=== PATIENT | female | born 1950 | race Caucasian/White ===

== ENCOUNTER 2016-02-18 15:21 | Inpatient (IN) | payer MEDICARE ==
[~2016-02-18] VITALS: Ht 162.6 cm; Wt 85.9 kg
[2016-02-22] MEDS ORDERED: LOSA100T3 PO (10:48)
[2016-02-22] MEDS ORDERED: DICL75TA PO (10:48)
[2016-02-22] MEDS ORDERED: METO25TA6 PO (10:48)
[2016-02-22] MEDS ORDERED: SIMV20TA PO (10:48)
[2016-02-22] MEDS ORDERED: LEVO75TA3 PO (10:48)
[2016-03-08 08:00] VITALS: BP 139/73; PULSE 66; RESP 20; TEMP 98; O2SAT 98
[2016-03-08] MEDS ORDERED: GENTAMICIN SULFATE 80 MG/2 ML VIAL ONE (08:15)
[2016-03-08] MEDS ORDERED: DEXAMETHASONE SOD PHOS 20 MG/5 ML VIAL ONE (08:17)
[2016-03-08] MEDS ORDERED: ceFAZolin 2 GM PREMIX 50 ML ONE (08:18)
[2016-03-08] MEDS ORDERED: VANCOMYCIN HCL 1000 MG VIAL ONE (08:18)
[2016-03-08] MEDS ORDERED: SODIUM CHLOR 0.9% 250 ML INJ 250 ML ONE (08:18)
[2016-03-08] MEDS: POVIDONE IODINE 7.5% SCRUB 118 ML BOTTLE TOP SCH (08:30)
[2016-03-08] MEDS ORDERED: ceFAZolin 2 GM PREMIX 50 ML IV SCH (08:30)
[2016-03-08] MEDS ORDERED: VANCOMYCIN 1000 MG/NS 250 ML (for <70 kg) IV SCH ×2 (08:30)
[2016-03-08] MEDS ORDERED: DEXAMETHASONE SOD PHOS 20 MG/5 ML VIAL IV ONE (08:30)
[2016-03-08] MEDS ORDERED: ROPIVACAINE PERI-ARTICULAR INJECTION. PERIART SCH ×5 (08:30)
[2016-03-08] MEDS ORDERED: INSULIN HUMAN REGULAR 1,000 UNITS/10 ML VIAL SQ PRN (08:30)
[2016-03-08] MEDS ORDERED: METOPROLOL TARTRATE 25 MG TAB PO PRN (08:30)
[2016-03-08] MEDS ORDERED: SODIUM CHLORID 0.9% 500 ML IV SCH (09:00)
[2016-03-08] MEDS ORDERED: LACTATED RINGER'S 1000 ML IV SCH (09:00)
[2016-03-08] MEDS ORDERED: MIDAZOLAM HCL 5 MG/5 ML VIAL ONE (09:18)
[2016-03-08] MEDS ORDERED: APREPITANT 40 MG CAP ONE (09:18)
[2016-03-08] MEDS ORDERED: FAMOTIDINE 20 MG/2 ML VIAL ONE (09:18)
[2016-03-08] MEDS ORDERED: SODIUM CHLORIDE 0.9% IV SCH ×2 (09:30→14:00)
[2016-03-08] MEDS ORDERED: TRANEXAMIC ACID IV SCH ×2 (09:30→14:00)
[2016-03-08] MEDS ORDERED: ACETAMINOPHEN 1000 MG/100 ML VIAL IV ONE (09:54)
--- NOTE | 2016-03-08 11:54 | PD.OP ---
cc: Yonatan Giron MD Operative Report Date of Surgery: Mar 08, 2016 Preoperative Diagnosis: Right knee severe osteoarthritis Postoperative Diagnosis: Same Procedure: Right total knee arthroplasty Anesthesia: Spinal and adductor canal block Surgeon: Yonatan Giron [employer] Manager(s): RUKHSANA Sainz The surgical procedure was assisted by my Advanced Registered Nurse Practitioner. My CHILD SUPPORT CASE OFFICER presence was necessary throughout this case for the manipulation and positioning of the surgical extremity. My CHILD SUPPORT CASE OFFICER was assisting me throughout the duration of this procedure. The skill set of an Advance Registered Nurse Practitioner was medically necessary to complete this procedure. During the surgical case, the instructor adjunct surgical technician was working at the back table and the Advance Registered Nurse Practitioner was directly assisting me. Operation and Findings: IMPLANTS: DePuy Attune: Patella: size 32. Femur, posterior stabilized size 5. Tibia, rotating platform size 4. Tibial insert, rotating platform, posterior stabilized size 5 mm thickness. ESTIMATED BLOOD LOSS: 150 cc TOURNIQUET TIME: 40 minutes at 250 mmHg pressure. JUSTIFICATION FOR PROCEDURE: The patient has end-stage osteoarthritis to the knee. There is an attached conservative measures pathway form in the chart that describes the nonoperative measures that were undertaken prior to consideration of surgical management. The patient understood the risks and benefits of surgical management. See my office notes for further details PROCEDURE: The patient was brought back to the operative theatre. Adequate anesthesia was obtained. The patient received intravenous vancomycin and Ancef. The lower extremity was prepped and draped in the usual sterile fashion.The leg was exsanguinated, the tourniquet was raised. A standard anterior incision was performed followed by medial parapatellar arthrotomy was performed. End-stage arthritis was identified. Osteotomy of the patella was performed. We drilled holes for the patella. We trialed the patella component. We placed an intramedullary guide into the distal femur. We ultimately resected 13 mm off of the distal femur in 5 degrees of valgus. The remnants of the ACL and PCL were resected. Osteotomy of the proximal tibia was performed, resecting 7 mm off of the medial side. This was done with 3 degrees of posterior slope using an extramedullary guide. The distal end of the guide was placed in the mid aspect of the ankle. The femur was sized, and four chamfer cuts were completed in 3 of external rotation. We then cut the central box in the distal femur to replace the PCL. We resected the remnants of the menisci and removed osteophytes off of the femur and tibia. We then trialed the knee. We punched the tibia for the keel, and then used standard technique to cement in components. Excess cement was removed. We trialed the knee again and the final polyethylene thickness was chosen to provide extension to 0 degrees, and flexion of 140 degrees to gravity. The ligaments were appropriately balanced. Lateral release was not necessary to obtain excellent patellofemoral tracking. The tourniquet was released and adequate hemostasis was obtained. An intra- articular injection of a ropivacaine cocktail was injected. The posterior knee was inspected for excess cement, which was removed. The final polyethylene was put into position after thorough irrigation. We then closed deep fascia with a #2 Stratafix followed by skin with 2-0 Vicryl followed by rosalind. Postop plan is to weight-bear as tolerated. DVT prophylaxis will be performed with James, JULES salgado, early mobilization, and Lovenox followed by aspirin. Yonatan Giron MD Mar 08, 2016 11:54
[2016-03-08] MEDS ORDERED: PERC5TAB12 PO (11:55)
[2016-03-08] MEDS ORDERED: ENOX40P SQ (11:55)
[2016-03-08] MEDS ORDERED: ASPI325T PO (11:55)
[2016-03-08] MEDS ORDERED: oxyCODONE/ACETAMINOPHEN 5 MG/325 MG TAB PO PRN (12:00)
[2016-03-08] MEDS ORDERED: LACTATED RINGER'S 1000 ML INJ 1,000 ML IV ONE (12:00)
[2016-03-08] MEDS ORDERED: PROPOFOL 200 MG/20 ML AMP IV ONE (12:00)
[2016-03-08] MEDS ORDERED: ONDANSETRON HCL 4 MG/2 ML VIAL IV PUSH ONE (12:00)
[2016-03-08] MEDS ORDERED: ALUMINUM/MAGNESIUM/SIMETH 30 ML CUP PO PRN (12:00)
[2016-03-08] MEDS ORDERED: MORPHINE SULFATE 4 MG/ML INJ IV PUSH PRN (12:00)
[2016-03-08] MEDS ORDERED: NALOXONE HCL 0.4 MG/ML AMP IV PRN (12:00)
[2016-03-08] MEDS ORDERED: ePHEDrine/NS 50 MG/5 ML SYR IV ONE (12:00)
[2016-03-08] MEDS ORDERED: MAGNESIUM HYDROXIDE SUSP 30 ML CUP PO PRN (12:00)
[2016-03-08] MEDS ORDERED: SODIUM CHLORIDE 0.9% FLUSH 5 ML FLUSH IVF PRN (12:00)
[2016-03-08] MEDS ORDERED: diphenhydrAMINE HCL 50 MG/ML VIAL IV PRN (12:00)
[2016-03-08] MEDS ORDERED: ZOLPIDEM TARTRATE 5 MG TAB PO PRN (12:00)
[2016-03-08] MEDS ORDERED: Post-op Orders (for Pharmacy) MISC XX ONE (12:00)
[2016-03-08] MEDS ORDERED: BISACODYL 10 MG SUPP PR PRN (12:00)
[2016-03-08 12:14] VITALS: PULSE 89
--- NOTE | 2016-03-08 12:20 | HHI.DCPOC ---
Discharge Care Plan Diagnosis: (1) Primary localized osteoarthrosis, lower leg Your Health Problems Are: Difficulty with ADL Goals to Promote Your Health * To prevent worsening of your condition and complications * To maintain your health at the optimal level Directions to Meet Your Goals Take your medications as prescribed Follow your dietary instruction Follow activity as directed Keep your appointments as scheduled Take your immunizations and boosters as scheduled If your symptoms worsen call your PCP, if no PCP go to Urgent Care Center or Emergency Room Smoking is Dangerous to Your Health. Avoid second hand smoke Call the 24-hour hour crisis hotline for domestic abuse at [facility] [place] Mar 08, 2016 12:20
--- NOTE | 2016-03-08 12:20 | HHI.FF ---
Face to Face Verification Diagnosis: (1) Primary localized osteoarthrosis, lower leg Physical Therapy Gait training, Transfer training, bed to chair Knee: Total knee Right LE Weight Bearing: WB as tolerated Right LE Range of Motion: Active ROM Nursing Nursing: Kylie teaching, Dressing changes Dressing Changes: Daily dressing change I have seen patient Yaneth Hernandez on 03/08/16. My clinical findings support the need for the requested home health care services because: Limited ability to care for self High risk of falls I certify that my clinical findings support that this patient is homebound because: Post-op weakness Unsteady gait/balance Buck Orellana Mar 08, 2016 12:20
[2016-03-08] MEDS ORDERED: CPMMACHINE (12:22)
[2016-03-08] MEDS ORDERED: WALKER WHEELS/F1 MIS (12:22)
[2016-03-08] MEDS ORDERED: COMMODE 3-IN-11 MIS (12:22)
[2016-03-08] MEDS ORDERED: BUPIVACAINE LIPOSOME PF 1.3% 20 ML VIAL ONE (12:39)
--- NOTE | 2016-03-08 13:12 | RADRPT ---
EXAM DATE/TIME: 03/08/2016 12:44 [facility] COMPARISON: None INDICATIONS : Post-op total right knee arthroplasty. MEDICAL HISTORY : Hypertension. SURGICAL HISTORY : Hysterectomy. Right breast lumpectomy, Bilateral knee arthroscopy. ENCOUNTER: Initial ACUITY: 1 day PAIN SCORE: 0/10 LOCATION: Right knee. FINDINGS: 2 views of the right knee demonstrates expected postsurgical changes related to total right knee arth roplasty. Adjacent subcutaneous air. The osseous structures are appear intact with normal mineralizat ion. CONCLUSION: Status post total right knee arthroplasty with expected postsurgical change. No compl icating features are seen. Rochelle Lancaster MD on March 08, 2016 at 13:10 Board Certified Radiologist. This report was verified electronically.
[2016-03-08] MEDS: SODIUM CHLOR 0.9% 1000 ML INJ 1,000 ML IV SCH (13:30)
[2016-03-08] MEDS ORDERED: *morphine SULFATE 8 MG/ML PERIprocedure ONLY ONE (14:23)
[2016-03-08] MEDS ORDERED: *HYDROmorphone PF 1 MG VIAL PERIprocedural Use ONLY ONE (15:06)
[2016-03-08 15:45] VITALS: PULSE 91
--- NOTE | 2016-03-08 16:04 | PD.CONS ---
[facility] By [facility]iron [facility]o Reason for Consult medical management Primary Care Physician Non-Staff Diagnoses: History of Present Illness 65 yo F with PNH of HTN, HLD, Hypothyroidism came to elective right knee surgery by Dr Plascencia 03/08/16. Patient is s/p Right total knee arthroplasty . Was seen in PACU. Says she feesl good at this time. Patient reports she has back spasms lately. Pain is controlled by meds. Patient also says she usually has nausea after anesthesia wares off. No nausea at this time. Wi;l have antiemetics and laxatives asa need. Otherwise no complaints. Review of Systems Constitutional: DENIES: Fever, Chills, Change in appetite Endocrine: DENIES: Heat/cold intolerance Eyes: DENIES: Blurred vision, Eye pain Ears, nose, mouth, throat: DENIES: Tinnitus, Hearing loss, Vertigo, Nasal discharge, Oral lesions, Throat pain, Hoarseness, Ear Pain, Running Nose, Epistaxis, Sinus Pain, Toothache, Odynophagia Respiratory: DENIES: Apneas, Cough, Snoring, Wheezing, Hemoptysis, Sputum production, Shortness of breath Cardiovascular: DENIES: Chest pain, Palpitations, Syncope, Dyspnea on Exertion , PND, Lower Extremity Edema, Orthopnea, Claudication Gastrointestinal: DENIES: Abdominal pain, Black stools, Bloody stools, Constipation, Diarrhea, Nausea, Vomiting, Difficulty Swallowing, Anorexia Genitourinary: DENIES: Urinary frequency Musculoskeletal: COMPLAINS OF: Joint pain, Back pain Neurologic: DENIES: Abnormal gait, Headache, Localized weakness, Paresthesias, Seizures, Speech Problems, Tremor, Poor Balance Psychiatric: DENIES: Anxiety, Depression Past Family Social History Allergies: Coded Allergies: No Known Allergies (Unverified , 03/08/16) Past Medical History HTN, HLD Hypothyroidism Past Surgical History Hysterectomy H/o breast CA. Bilat breast implants right knee arthroscopy 03/13 Reported Medications Last Impressions Knee X-Ray 03/08/16 1150 Signed Impressions: Service Date/Time: Tuesday, March 08, 2016 12:44 - CONCLUSION: Status post total right knee arthroplasty with expected postsurgical change. No complicating features are seen. Rochelle Lancaster MD Family History Mother heart problems CABG, first stroke at the age of 29, send stroke at 56 ya when she Father emphysema, was a smoker. HTN. Siblings: Br CA, HTN, Alzheimers Social History Occasional EtOH use Used to smoke less than 1/2 PPD, for 15 years, quit 20 years ago No illicit drug use. Used to be a nurse. Physical Exam Vital Signs Vital Signs Date Time Temp Pulse Resp B/P Pulse Ox O2 Delivery O2 Flow Rate FiO2 03/08/16 15:45 91 03/08/16 14:15 97.2 79 14 100/60 97 Room Air 03/08/16 14:00 80 14 107/59 97 Room Air 03/08/16 13:45 78 14 107/59 97 Room Air 03/08/16 13:30 81 14 102/58 96 Room Air 03/08/16 13:15 81 14 110/63 100 Room Air 03/08/16 13:00 77 14 105/63 99 Room Air 03/08/16 12:45 82 14 92/56 99 Room Air 03/08/16 12:30 84 14 102/50 98 Room Air 03/08/16 12:14 89 03/08/16 12:14 97.3 89 14 109/48 97 Room Air 03/08/16 08:00 98.0 66 20 139/73 98 Physical Exam GENERAL: This is a well-nourished, well-developed patient, in no apparent distress. SKIN: No rashes, ecchymoses or lesions. Cool and dry. HEAD: Atraumatic. Normocephalic. No temporal or scalp tenderness. EYES: Pupils equal round and reactive. Extraocular motions intact. No scleral icterus. No injection or drainage. ENT: Nose without bleeding, purulent drainage or septal hematoma. Throat without erythema, tonsillar hypertrophy or exudate. Uvula midline. Airway patent. NECK: Trachea midline. No JVD or lymphadenopathy. Supple, nontender, no meningeal signs. CARDIOVASCULAR: Regular rate and rhythm without murmurs, gallops, or rubs. RESPIRATORY: Clear to auscultation. Breath sounds equal bilaterally. No wheezes , rales, or rhonchi. GASTROINTESTINAL: Abdomen soft, non-tender, nondistended. No hepato-splenomegaly , or palpable masses. No guarding. MUSCULOSKELETAL: Extremities without clubbing, cyanosis, or edema. No joint tenderness, effusion, or edema noted. No calf tenderness. Negative Homans sign bilaterally. NEUROLOGICAL: Awake and alert. Cranial nerves II through XII intact. Motor and sensory grossly within normal limits. Five out of 5 muscle strength in all muscle groups. Normal speech. Laboratory Laboratory Tests Test 03/08/16 08:00 Blood Type O NEGATIVE Antibody Screen NEGATIVE Blood Bank Comment Imaging Last Impressions Knee X-Ray 03/08/16 1150 Signed Impressions: Service Date/Time: Tuesday, March 08, 2016 12:44 - CONCLUSION: Status post total right knee arthroplasty with expected postsurgical change. No complicating features are seen. Rochelle Lancaster MD Assessment and Plan Assessment and Plan 65 yo F with PMH of HTN. HLD, Hypothyroidism with Monitor H.H postsurgical transfuse if HGB < 7 Monitor VS OA s/p Right total knee arthroplasty 03/08/16 . Management per ortho HTN. HLD, Hypothyroidism stable. Restart home meds. Monitor VS. Antiemetics, laxatives as need. Thank you for this consultation. Stable at this time. Hospitalist will sign off Discussed Condition With patient. nurse Rosa Lindsey MD Mar 08, 2016 16:04
[2016-03-08] MEDS ORDERED: COLA100C3 PO (16:06)
[2016-03-08] MEDS ORDERED: ZOFR4TAB PO (16:06)
[2016-03-08 16:14] VITALS: BP 120/75; PULSE 92; RESP 17; TEMP 96.6; O2SAT 98
[2016-03-08] MEDS: ONDANSETRON HCL 4 MG/2 ML VIAL IVP PRN (16:55)
[2016-03-08] MEDS: oxyCODONE/ACETAMINOPHEN 5 MG/325 MG TAB PO PRN ×2 (17:47→21:18)
[2016-03-08 20:00] VITALS: BP 124/82; PULSE 95; RESP 16; TEMP 96.2; O2SAT 100
[2016-03-08] MEDS ORDERED: METOPROLOL SUCCINATE 25 MG EXTENDED RELEASE TAB PO SCH (21:00)
[2016-03-08] MEDS ORDERED: PRAVASTATIN SOD 40 MG TAB PO SCH (21:00)
[2016-03-08] MEDS: SODIUM CHLORIDE 0.9% FLUSH 5 ML FLUSH IVF SCH (21:00)
[2016-03-09] VITALS: BP 121/69; PULSE 95; RESP 17; TEMP 96.7; O2SAT 94
[2016-03-09] MEDS: oxyCODONE/ACETAMINOPHEN 5 MG/325 MG TAB PO PRN ×4 (02:38→15:06)
[2016-03-09 04:14] VITALS: BP 106/61; PULSE 94; RESP 16; TEMP 97.5; O2SAT 94
[2016-03-09 05:57] LABS: HEMATOCRIT 27.8 % (35.0-46.0); MEAN CELL VOLUME 90.2 FL (80.0-100.0); MEAN CORPUSCULAR HEMOGLOBIN 31.1 PG (27.0-34.0); MEAN CORPUSCULAR HGB CONC 34.4 % (32.0-36.0); PLATELET COUNT 200 TH/MM3 (150-450); RED BLOOD COUNT 3.08 MIL/MM3 (4.00-5.30); RED CELL DISTRIBUTION WIDTH 12.9 % (11.6-17.2); REVIEW FLAG FINAL; WHITE BLOOD COUNT 12.8 TH/MM3 (4.0-11.0)
[2016-03-09] MEDS ORDERED: LEVOTHYROXINE SODIUM 75 MCG TAB PO SCH (06:00)
[2016-03-09] MEDS ORDERED: DEXAMETHASONE SOD PHOS 20 MG/5 ML VIAL IV ONE (07:45)
[2016-03-09 08:00] VITALS: BP 105/59; PULSE 79; RESP 20; TEMP 96.9; O2SAT 97
[2016-03-09] MEDS: POVIDONE IODINE 7.5% SCRUB 118 ML BOTTLE TOP SCH (08:30)
[2016-03-09] MEDS ORDERED: NON-FORMULARY DRUG (Losartan-Hydrochlorothiazide 1 TAB) PO SCH (09:00)
[2016-03-09] MEDS: SODIUM CHLOR 0.9% 1000 ML INJ 1,000 ML IV SCH (09:00)
[2016-03-09] MEDS ORDERED: HYDROCHLOROTHIAZIDE 12.5 MG CAP PO SCH (09:00)
[2016-03-09] MEDS ORDERED: LOSARTAN 50 MG TAB PO SCH (09:00)
[2016-03-09] MEDS: SODIUM CHLORIDE 0.9% FLUSH 5 ML FLUSH IVF SCH (09:00)
[2016-03-09] MEDS: ONDANSETRON HCL 4 MG/2 ML VIAL IVP PRN (09:10)
[2016-03-09 12:00] VITALS: BP 118/71; PULSE 74; RESP 20; TEMP 98.5; O2SAT 98
[2016-03-09] MEDS ORDERED: ENOXAPARIN SODIUM 40 MG/0.4 ML SYRINGE SQ SCH (12:00)
--- NOTE | 2016-03-09 12:00 | PD.ORT.PN ---
Subjective Post Op Day #: 1 Subjective Remarks Patient resting in bed with mild pain to the right knee. Patient denies nausea. Patient requesting to go home with home health today. Objective Vitals Vital Signs Date Time Temp Pulse Resp B/P Pulse Ox O2 Delivery O2 Flow Rate FiO2 03/09/16 08:00 96.9 79 20 105/59 97 03/09/16 04:14 97.5 94 16 106/61 94 03/09/16 00:00 96.7 95 17 121/69 94 03/08/16 20:00 96.2 95 16 124/82 100 03/08/16 16:14 96.6 92 17 120/75 98 03/08/16 15:45 91 03/08/16 15:45 97.2 89 14 132/78 99 Nasal Cannula 2 03/08/16 15:30 89 14 129/74 97 Nasal Cannula 2 03/08/16 15:15 88 14 126/73 94 Room Air 03/08/16 15:00 92 14 117/69 99 Room Air 03/08/16 14:45 82 14 113/62 94 Room Air 03/08/16 14:30 86 14 120/41 97 Room Air 03/08/16 14:15 97.2 79 14 100/60 97 Room Air 03/08/16 14:00 80 14 107/59 97 Room Air 03/08/16 13:45 78 14 107/59 97 Room Air 03/08/16 13:30 81 14 102/58 96 Room Air 03/08/16 13:15 81 14 110/63 100 Room Air 03/08/16 13:00 77 14 105/63 99 Room Air 03/08/16 12:45 82 14 92/56 99 Room Air 03/08/16 12:30 84 14 102/50 98 Room Air 03/08/16 12:14 89 03/08/16 12:14 97.3 89 14 109/48 97 Room Air I/O 03/08/16 03/08/16 03/08/16 03/09/16 03/09/16 03/09/16 07:00 15:00 23:00 07:00 15:00 23:00 Intake Total 1900 ml 540 ml 240 ml Output Total 300 ml 950 ml 400 ml Balance 1600 ml -410 ml -160 ml Intake Oral 0 ml 240 ml 240 ml Other 1900 ml 300 ml Output Urine Total 200 ml 950 ml 400 ml Estimated Blood Loss 100 ml # Bowel Movements 0 0 Result Diagram: 03/09/16 0445 Imaging Last 24 hours Impressions Knee X-Ray 03/08/16 1150 Signed Impressions: Service Date/Time: Tuesday, March 08, 2016 12:44 - CONCLUSION: Status post total right knee arthroplasty with expected postsurgical change. No complicating features are seen. Rochelle Lancaster MD Procedures Right TKA Objective Remarks The patient's dressings are changed today with no drainage. Incision is well approximated with surgical clips intact. No redness or s/s of infection. EHL/ TA/G intact. 2+ pedal pulse. Calf is soft and nontender. +SILT. Mild swelling. Assessment & Plan Ortho Post Op Day #: 1 Problem List: Assessment and Plan POD #1: Right TKA 1. WBAT RLE 2. Lovenox for DVT prophylaxis 3. Ice to the right knee PRN 4. Patient stable for discharge home with home health today. Buck Orellana Mar 09, 2016 12:00
[2016-03-09] MEDS ORDERED: ONDANSETRON ODT 4 MG TAB PO ONE (12:30)
[2016-03-09] MEDS ORDERED: MULTIVITAMINS/MINERALS THERAPEUTIC TAB PO SCH (21:00)
[2016-03-09] MEDS ORDERED: DOCUSATE SODIUM 100 MG CAP PO SCH (21:00)
--- NOTE | 2016-03-12 18:01 | HHI.DS ---
Discharge Summary Admission Date Mar 08, 2016 at 07:20 Discharge Date: Mar 09, 2016 Admitting Diagnosis Primary localized OA, lower leg Status post Right TKA Diagnosis: (1) Primary localized osteoarthrosis, lower leg Diagnosis: Principal Procedures Right TKA Brief History This is a 65 year old female patient with severe OA of the right knee CBC/BMP: 03/09/16 0445 PE at Discharge The patient's dressings are changed today with no drainage. Incision is well approximated with surgical clips intact. No redness or s/s of infection. EHL/ TA/G intact. 2+ pedal pulse. Calf is soft and nontender. +SILT. Mild swelling. Hospital Course The patient was admitted to the hospital for severe OA of the right knee to have a right TKA. The patient's surgery went well with no complications. The patient had a normal hospital course. The patient is WBAT on the RLE. The patient is discharged home with home health and will f/u with Dr. Giron in 1-2 weeks. Pt Condition on Discharge: Stable Discharge Disposition: Disch w/ Home Health Serv Discharge Instructions Diet Instructions: As Tolerated, No Restrictions Activities You Can Perform: Weight Bearing as Jatin Activities to Avoid: Strenuous Activity Follow up Referrals: Orthopedics with Yonatan Giron MD New Medications: Aspirin (Aspirin) 325 Mg Tab 325 MG PO DAILY Start Aspirin after Lovenox is completed. Prevent Blood Clot # 30 Ref 0 TAB Commode 3-in-1 (Commode 3-in-1) 1 Mis Mis 1 EA .ROUTE DIRECTED #1 Ref 0 EA CPM-Continuous Passive Motion Machine (CPM-Continuous Passive Motion Machine) 1 Ea Device 1 EA .ROUTE DIRECTED #1 Ref 0 EA Docusate Sodium (Colace) 100 Mg Cap 100 MG PO BID Constipation #60 Ref 0 CAP Enoxaparin Inj (Lovenox Inj) 40 Mg/0.4 Ml Syr 40 MG SQ DAILY Start Aspirin after Lovenox is completed. Blood Clot Prevention # 10 Ref 0 SYRINGE Ondansetron (Zofran) 4 Mg Tab 4 MG PO Q12HR PRN NAUSEA OR VOMITING #20 Ref 0 TAB Oxycodone-Acetaminophen (Percocet) 5-325 mg Tab 1-2 TAB PO Q4H PRN PAIN #60 Ref 0 TAB Walker with Front Wheels (Walker with Front Wheels) 1 Mis Mis 1 EA .ROUTE DIRECTED #1 Ref 0 EA Continued Medications: Levothyroxine (Levothyroxine) 75 Mcg Tab 75 MCG PO DAILY Thyroid #30 Ref 0 TAB Losartan-Hydrochlorothiazide (Losartan-Hydrochlorothiazide) 100-12.5 Mg Tab 1 TAB PO DAILY Blood Pressure Management #30 Ref 0 TAB Metoprolol Succinate ER 24 HR (Metoprolol Succinate ER 24 HR) 25 Mg Tab 25 MG PO HS #30 Ref 0 TAB Simvastatin (Simvastatin) 20 Mg Tab 20 MG PO HS Cholesterol Management #30 Ref 0 TAB Discontinued Medications: Diclofenac Sodium DR (Diclofenac Sodium DR) 75 Mg Tabdr 75 MG PO BID #60 Ref 0 TAB [facility] Orellana Mar 12, 2016 18:01
== END 2016-03-09 16:44 | disposition home health service (06) | DRG 470 ==
LOC: HSDI 03-08 07:20 → EDUNIT# 03-08 10:00 → N06A 03-08 16:13
PROVIDERS: ADMIT Orthopaedic Surgery; ATTEND Orthopaedic Surgery
PROC: 0QRD0JZ Replacement of Right Patella with Synthetic Substitute, Open Approach (ICD-10-PCS; 2016-03-08)
PROC: 3E0T3CZ (ICD-10-PCS; 2016-03-08)
PROC: 0SRC0J9 Replacement of Right Knee Joint with Synthetic Substitute, Cemented, Open Approach (ICD-10-PCS; principal; 2016-03-08 09:58)
DX: M17.11 Unilateral primary osteoarthritis, right knee (principal); I10 Essential (primary) hypertension; E78.5 Hyperlipidemia, unspecified; E03.9 Hypothyroidism, unspecified; Z87.891 Personal history of nicotine dependence; Z98.82 Breast implant status; Z85.3 Personal history of malignant neoplasm of breast
CPT/HCPCS: 73560; 85027; 86850; 86900; 86901; 94150; C1776; C9290; J0131; J0171; J0690; J0735; J1100; J1170; J1580; J1650; J1885; J2250; J2270; J2405; J2795; J3010; J3370; J7030; J7050; J7120; J8501; L1830

== ENCOUNTER 2016-07-04 13:46 | Inpatient (IN) | payer MEDICARE ==
[~2016-07-04] VITALS: Ht 162.6 cm; Wt 66.4 kg
[~2016-07-04 13:46] MED LIST: LEVO75TA3 PO; LOSA100T3 PO; METO25TA6 PO; SIMV20TA PO
[2016-07-05] MEDS ORDERED: ZOLP5TAB3 PO (10:25)
[2016-07-05] MEDS ORDERED: TYLE325T PO (10:26)
[2016-07-19] MEDS ORDERED: CHLORHEXIDINE GLUCONATE 2 % 1 PACK (2 CLOTHS) TOPICAL PRN (06:00)
[2016-07-19] MEDS ORDERED: POVIDONE IODINE 5% (ANTISEPSIS KIT) 4 APPLICATIONS EACH NARE PRN (06:00)
[2016-07-19] MEDS ORDERED: INSULIN HUMAN REGULAR 1,000 UNITS/10 ML VIAL SQ PRN (06:00)
[2016-07-19] MEDS ORDERED: LACTATED RINGER'S 1000 ML IV PRN (06:00)
[2016-07-19] MEDS ORDERED: METOPROLOL TARTRATE 25 MG TAB PO PRN (06:00)
[2016-07-19] MEDS ORDERED: SODIUM CHLORID 0.9% 500 ML IV PRN (06:00)
[2016-07-19] MEDS ORDERED: ceFAZolin 2 GM PREMIX 50 ML IV SCH (06:15)
[2016-07-19] MEDS ORDERED: ONDANSETRON HCL 4 MG/2 ML VIAL IV PUSH SCH (06:15)
[2016-07-19] MEDS ORDERED: POVIDONE IODINE 7.5% SCRUB 118 ML BOTTLE TOPICAL SCH (06:15)
[2016-07-19] MEDS ORDERED: ACETAMINOPHEN 1000 MG/100 ML VIAL IV SCH (06:15)
[2016-07-19] MEDS ORDERED: VANCOMYCIN 1000 MG/NS 250 ML (for <70 kg) IV SCH ×2 (06:15)
[2016-07-19] MEDS ORDERED: APREPITANT 40 MG CAP PO SCH (06:15)
[2016-07-19] MEDS ORDERED: metroNIDAZOLE 500 MG INJ 100 ML IV SCH (06:15)
[2016-07-19] MEDS ORDERED: SCOPOLAMINE 1.5 MG PATCH T-DERMAL SCH (06:15)
[2016-07-19 06:37] VITALS: BP 129/77; PULSE 67; RESP 16; TEMP 98.8; O2SAT 97
--- NOTE | 2016-07-19 06:50 | HHI.FF ---
Face to Face Verification Diagnosis: (1) Primary localized osteoarthrosis, lower leg (2) Status post total knee replacement, left Physical Therapy Gait training, Transfer training, bed to chair Knee: Total knee Left LE Weight Bearing: WB as tolerated Left LE Range of Motion: Active ROM Nursing Nursing: Kylie teaching, Dressing changes Dressing Changes: Daily dressing change I have seen patient Yaneth Hernandez on 07/19/16. My clinical findings support the need for the requested home health care services because: Limited ability to care for self High risk of falls I certify that my clinical findings support that this patient is homebound because: Post-op weakness Unsteady gait/balance Buck Orellana July 19, 2016 06:50
--- NOTE | 2016-07-19 06:50 | HHI.DCPOC ---
Discharge Care Plan Diagnosis: (1) Primary localized osteoarthrosis, lower leg (2) Status post total knee replacement, left Your Health Problems Are: Difficulty with ADL Goals to Promote Your Health * To prevent worsening of your condition and complications * To maintain your health at the optimal level Directions to Meet Your Goals Take your medications as prescribed Follow your dietary instruction Follow activity as directed Keep your appointments as scheduled Take your immunizations and boosters as scheduled If your symptoms worsen call your PCP, if no PCP go to Urgent Care Center or Emergency Room Smoking is Dangerous to Your Health. Avoid second hand smoke Call the 24-hour hour crisis hotline for domestic abuse at [facility] [place] July 19, 2016 06:50
[2016-07-19] MEDS ORDERED: CPMMACHINE (06:51)
[2016-07-19] MEDS ORDERED: GENTAMICIN SULFATE 80 MG/2 ML VIAL ONE ×2 (06:57→08:26)
[2016-07-19] MEDS ORDERED: VANCOMYCIN 1,250 MG/NS 250 ML (for 70-84 kg) IV SCH ×2 (07:00)
[2016-07-19] MEDS ORDERED: DEXAMETHASONE SOD PHOS 20 MG/5 ML VIAL IV SCH (07:30)
[2016-07-19] MEDS ORDERED: MIDAZOLAM HCL 2 MG/2 ML VIAL ONE (08:13)
[2016-07-19] MEDS ORDERED: ACETAMINOPHEN 1000 MG/100 ML VIAL IV ONE (08:13)
[2016-07-19] MEDS ORDERED: FAMOTIDINE 20 MG/2 ML VIAL ONE (08:13)
[2016-07-19] MEDS ORDERED: TRANEXAMIC ACID IV SCH ×2 (08:30→12:00)
[2016-07-19] MEDS ORDERED: ROPIVACAINE PERI-ARTICULAR INJECTION. P-ARTICULR SCH ×5 (08:30)
[2016-07-19] MEDS ORDERED: SODIUM CHLORIDE 0.9% IV SCH ×2 (08:30→12:00)
[2016-07-19] MEDS ORDERED: BUPIVACAINE LIPOSOME PF 1.3% 20 ML VIAL ONE (08:33)
[2016-07-19] MEDS: SODIUM CHLOR 0.9% 1000 ML INJ 1,000 ML IV SCH ×2 (10:22→21:02)
--- NOTE | 2016-07-19 10:26 | PD.OP ---
cc: Yonatan Giron MD Operative Report Date of Surgery: July 19, 2016 Preoperative Diagnosis: Left knee severe osteoarthritis Postoperative Diagnosis: Same Procedure: Left total knee arthroplasty Anesthesia: Spinal and adductor canal block Surgeon: Yonatan Giron Hollow Tile Partition Erector(s): RUKHSANA Sainz The surgical procedure was assisted by my Advanced Registered Nurse Practitioner. My SHEETING PULLER presence was necessary throughout this case for the manipulation and positioning of the surgical extremity. My SHEETING PULLER was assisting me throughout the duration of this procedure. The skill set of an Advance Registered Nurse Practitioner was medically necessary to complete this procedure. During the surgical case, the neurosurgical physician assistant was working at the back table and the Advance Registered Nurse Practitioner was directly assisting me. Operation and Findings: IMPLANTS: DePuy Attune: Patella: size 32. Femur, posterior stabilized size 5 narrow. Tibia, rotating platform size 4. Tibial insert, rotating platform, posterior stabilized size 6 mm thickness. ESTIMATED BLOOD LOSS: 100 cc TOURNIQUET TIME: 34 minutes at 250 mmHg pressure. JUSTIFICATION FOR PROCEDURE: The patient has end-stage osteoarthritis to the knee. There is an attached conservative measures pathway form in the chart that describes the nonoperative measures that were undertaken prior to consideration of surgical management. The patient understood the risks and benefits of surgical management. See my office notes for further details PROCEDURE: The patient was brought back to the operative theatre. Adequate anesthesia was obtained. The patient received intravenous vancomycin and Ancef. The lower extremity was prepped and draped in the usual sterile fashion.The leg was exsanguinated, the tourniquet was raised. A standard anterior incision was performed followed by medial parapatellar arthrotomy was performed. End-stage arthritis was identified. Osteotomy of the patella was performed. We drilled holes for the patella. We trialed the patella component. We placed an intramedullary guide into the distal femur. We ultimately resected 13 mm off of the distal femur in 5 degrees of valgus. The remnants of the ACL and PCL were resected. Osteotomy of the proximal tibia was performed, resecting 5 mm off of the medial side. This was done with 3 degrees of posterior slope using an extramedullary guide. The distal end of the guide was placed in the mid aspect of the ankle. The femur was sized, and four chamfer cuts were completed in 3 of external rotation. We then cut the central box in the distal femur to replace the PCL. We resected the remnants of the menisci and removed osteophytes off of the femur and tibia. We then trialed the knee. We punched the tibia for the keel, and then used standard technique to cement in components. Excess cement was removed. We trialed the knee again and the final polyethylene thickness was chosen to provide extension to 0 degrees, and flexion of 140 degrees to gravity. The ligaments were appropriately balanced. Lateral release was not necessary to obtain excellent patellofemoral tracking. The tourniquet was released and adequate hemostasis was obtained. An intra- articular injection of a ropivacaine cocktail was injected. The posterior knee was inspected for excess cement, which was removed. The final polyethylene was put into position after thorough irrigation. We then closed deep fascia with a #2 Stratafix followed by skin with 2-0 Vicryl followed by rosalind. Postop plan is to weight-bear as tolerated. DVT prophylaxis will be performed with James, JULES salgado, early mobilization, and Lovenox followed by aspirin. Yonatan Giron MD July 19, 2016 10:25
[2016-07-19] MEDS ORDERED: ASPI325T PO (10:28)
[2016-07-19] MEDS ORDERED: PERC10TA27 PO (10:28)
[2016-07-19] MEDS ORDERED: ENOX40P SQ (10:28)
[2016-07-19] MEDS ORDERED: PROM25TA5 PO (10:28)
[2016-07-19] MEDS ORDERED: Post-op Orders (for Pharmacy) MISC XX ONE (10:30)
[2016-07-19] MEDS ORDERED: BISACODYL 10 MG SUPP RECTAL PRN (10:30)
[2016-07-19] MEDS ORDERED: ZOLPIDEM TARTRATE 5 MG TAB PO PRN ×2 (10:30)
[2016-07-19] MEDS ORDERED: diphenhydrAMINE HCL 50 MG/ML VIAL IV PRN (10:30)
[2016-07-19] MEDS ORDERED: ALUMINUM/MAGNESIUM/SIMETH 30 ML CUP PO PRN (10:30)
[2016-07-19] MEDS ORDERED: SODIUM CHLORIDE 0.9% FLUSH 5 ML FLUSH IVF PRN (10:30)
[2016-07-19] MEDS ORDERED: MORPHINE SULFATE 4 MG/ML INJ IV PUSH PRN (10:30)
[2016-07-19] MEDS ORDERED: MAGNESIUM HYDROXIDE SUSP 30 ML CUP PO PRN (10:30)
[2016-07-19] MEDS ORDERED: oxyCODONE/ACETAMINOPHEN 5 MG/325 MG TAB PO PRN (10:30)
[2016-07-19] MEDS ORDERED: NALOXONE HCL 0.4 MG/ML AMP IV PRN (10:30)
[2016-07-19] MEDS ORDERED: fentaNYL CITRATE 250 MCG/5 ML AMP ONE (10:56)
[2016-07-19] MEDS ORDERED: *morphine SULFATE 8 MG/ML PERIprocedure ONLY ONE ×3 (11:09→11:38)
[2016-07-19] MEDS ORDERED: DO NOT ADM ANY ANTICOAGULANT DRUGS PRN (11:30)
--- NOTE | 2016-07-19 11:30 | RADRPT ---
EXAM DATE/TIME: 07/19/2016 11:14 [facility] COMPARISON: No previous studies available for comparison. INDICATIONS : Post op left knee. MEDICAL HISTORY : None. SURGICAL HISTORY : None. ENCOUNTER: Initial ACUITY: 1 day PAIN SCORE: 8/10 LOCATION: Left Knee. FINDINGS: A left total knee arthroplasty is noted. The tibial and femoral components appear well-seated. Skin s taples are present anteriorly, subcutaneous emphysema and a small amount of air in the knee joint. CONCLUSION: Expected postoperative changes left total knee arthroplasty. Ravi Adler MD on July 19, 2016 at 11:28 Board Certified Radiologist. This report was verified electronically.
[2016-07-19] MEDS ORDERED: LACTATED RINGER'S 1000 ML INJ 2,000 ML IV ONE (12:00)
[2016-07-19] MEDS ORDERED: PHENYLEPH/NS 1000 MCG/10 ML SYR IV ONE (12:00)
[2016-07-19] MEDS ORDERED: ONDANSETRON HCL 4 MG/2 ML VIAL IV PUSH ONE (12:00)
[2016-07-19] MEDS ORDERED: PROPOFOL 200 MG/20 ML AMP IV ONE (12:00)
--- NOTE | 2016-07-19 12:30 | PD.CONS ---
HPI Service [facility] Hospitalists Consult Requested By Dr. Yonatan Giron Reason for Consult Medical management. Primary Care Physician Non-Staff Diagnoses: (1) Primary localized osteoarthrosis, lower leg (2) Status post total knee replacement, left History of Present Illness Ms. Hernandez is a 65-year-old female with a known medical history of hypertension , hypothyroidism, dyslipidemia, history of breast cancer, and previous right knee arthroplasty who is status post left total knee arthroplasty today 07/[address] Giron. Hospitalist group consulted for medical management. Patient seen and examined in PACU. Patient awake, alert and oriented, states pain is well controlled postoperatively. Left leg and knee with continuous passive motion. Splint and dressing clean, dry, intact. Denies any paresthesia, numbness or tingling to left lower extremity. Denies any recent fever, chills, shortness of breath, cough, chest pain, palpitations, abdominal pain, n/v, or dysuria. Review of Systems Except as stated in HPI: all other systems reviewed are Neg Past Family Social History Allergies: Coded Allergies: No Known Allergies (Unverified , 07/19/16) Past Medical History Hypertension Hypothyroidism Dyslipidemia Breast cancer Past Surgical History Right knee arthroplasty February 2016. Right breast lumpectomy status post radiation and PO chemotherapy in 2010. Tubal ligation Partial hysterectomy Bilateral knee arthroscopy Meniscal disease Reported Medications Active Aspirin 325 Mg Tab 325 Mg PO DAILY Start Aspirin after Lovenox is completed. Lovenox Inj (Enoxaparin Sodium) 40 Mg/0.4 Ml Syr 40 Mg SQ DAILY Start Aspirin after Lovenox is completed. Phenergan (Promethazine HCl) 25 Mg Tab 25 Mg PO Q6H PRN Percocet (Oxycodone-Acetaminophen) 10-325 mg Tab 1-2 Tab PO Q4H PRN Ok to take half a pill if too strong Reported Tylenol (Acetaminophen) 325 Mg Tab 650 Mg PO Q8HR PRN Zolpidem (Zolpidem Tartrate) 5 Mg Tab 5 Mg PO HS PRN Simvastatin 20 Mg Tab 20 Mg PO HS Metoprolol Succinate ER 24 HR (Metoprolol Succinate) 25 Mg Tab 25 Mg PO HS Losartan-Hydrochlorothiazide 100-12.5 Mg Tab 1 Tab PO DAILY Levothyroxine (Levothyroxine Sodium) 75 Mcg Tab 75 Mcg PO DAILY Active Ordered Medications Current Medications Medications (Trade) Dose Ordered Sig/Bobo Route Start Time Stop Time Status Last Admin Lactated Ringer's 1,000 ml @ 30 mls/hr Q24H PRN IV 07/19/16 06:00 07/22/16 05:59 07/19/16 06:15 (NS 500 ml Inj) 500 ml @ 30 mls/hr [id number] PRN IV 07/19/16 06:00 07/22/16 05:59 Povidone Iodine 1 applic 1 applic ONCE TOPICAL 07/19/16 06:15 07/22/16 06:14 Tranexamic Acid 664 mg/Sodium Chloride 106.64 ml @ 200 mls/ hr ONCE IV 07/19/16 08:30 07/19/16 14:30 07/19/16 09:10 (Naropin 0.5% Pf Inj/Toradol Inj/ Adrenalin (1:1000) Inj/ Duraclon Inj/NS Inj) 100 ml @ 200 mls/hr ONCE P-ARTICULR 07/19/16 08:30 07/19/16 14:30 07/19/16 10:06 (Synthroid) 75 mcg DAILY@0600 PO 07/20/16 06:00 (Toprol Xl) 25 mg HS PO 07/19/16 21:00 Non-Formulary Medication 1 tab DAILY PO 07/20/16 09:00 UNV Pravastatin Sodium 40 mg 40 mg HS PO 07/19/16 21:00 (NS 1000 ml Inj) 1,000 ml @ 100 mls/hr Q10H IV 07/19/16 10:22 07/19/16 10:22 (NS Flush) 2 ml UNSCH PRN IVF 07/19/16 10:30 IV Flush 2 ml 2 ml BID IVF 07/19/16 21:00 (Ancef Inj/NS Inj) 100 ml @ 200 mls/hr Q6H IV 07/19/16 12:00 07/20/16 00:29 (Decadron Inj) 10 mg ONCE ONCE IV 07/20/16 07:45 07/20/16 07:46 (Lovenox Inj) 40 mg Q24H SQ 07/20/16 10:00 07/29/16 10:01 (Percocet 5-325 Mg) 1 tab Q4H PRN PO 07/19/16 10:30 Oxycodone/ Acetaminophen 2 tab 2 tab Q4H PRN PO 07/19/16 10:30 (Cyklokapron Inj/ NS Inj) 106.64 ml @ 200 mls/ hr UNSCH IV 07/19/16 12:00 07/19/16 18:00 (Theragran M Tab) 1 tab BID PO 07/20/16 21:00 09/18/16 20:59 (Zofran Inj) 4 mg Q6H PRN IVP 07/19/16 10:30 (Colace) 100 mg BID PO 07/20/16 21:00 (Mag-Al Plus Susp Liq) 30 ml Q6H PRN PO 07/19/16 10:30 (Ambien) 5 mg HS PRN PO 07/19/16 10:30 (Dulcolax Supp) 10 mg DAILY PRN RECTAL 07/19/16 10:30 (Milk Of Magnesia Liq) 30 ml DAILY PRN PO 07/19/16 10:30 UNV (Narcan Inj) 0.4 mg UNSCH PRN IV 07/19/16 10:30 (Benadryl Inj) 25 mg Q6H PRN IV 07/19/16 10:30 (Morphine Inj) 2 mg Q3H PRN IV PUSH 07/19/16 10:30 UNV Miscellaneous Information ALL NURSING DEPARTME... UNSCH PRN .XX 07/19/16 11:30 07/20/16 11:29 Family History Paternal medical history significant for emphysema, smoking history. Maternal medical history significant for rheumatic heart disease with multiple heart surgeries and hypothyroidism. Sister has history of leukemia. Social History Patient denies any current tobacco use, does admit to quitting smoking almost 30 years ago after smoking < 1 ppd for 20 years. Denies any alcohol or illicit drug use. Physical Exam Vital Signs Vital Signs Date Time Temp Pulse Resp B/P Pulse Ox O2 Delivery O2 Flow Rate FiO2 07/19/16 11:30 75 16 118/62 95 Room Air 07/19/16 11:15 72 16 117/64 97 Room Air 07/19/16 11:00 73 16 105/62 97 Room Air 07/19/16 10:45 97.3 74 16 103/56 100 Nasal Cannula 2 07/19/16 06:37 98.8 67 16 129/77 97 Physical Exam GENERAL: A well-nourished, well-developed patient, in no apparent distress lying comfortably in bed. SKIN: No rashes, ecchymoses or lesions. Warm and dry. Left leg in continuous passive motion, warm to touch, sensation intact. HEENT: Atraumatic. Normocephalic. No temporal or scalp tenderness. Pupils equal round and reactive. Extraocular motions intact. No scleral icterus. No injection or drainage. Nose without bleeding, purulent drainage or septal hematoma. Airway patent. NECK: Trachea midline. No JVD or lymphadenopathy. Supple, nontender, no meningeal signs. CARDIOVASCULAR: Regular rate and rhythm without murmurs, gallops, or rubs. RESPIRATORY: Clear to auscultation. Breath sounds equal bilaterally. No wheezes , rales, or rhonchi. GASTROINTESTINAL: Abdomen soft, non-tender, nondistended. No hepato-splenomegaly , or palpable masses. No guarding. MUSCULOSKELETAL: Extremities without clubbing, cyanosis, or edema. No joint tenderness, effusion, or edema noted. NEUROLOGICAL: Awake and alert. Cranial nerves II through XII intact. Motor and sensory grossly within normal limits. Normal speech. Laboratory Laboratory Tests Test 07/19/16 06:26 Blood Type O NEGATIVE Antibody Screen NEGATIVE Imaging Last Impressions Knee X-Ray 07/19/16 1022 Signed Impressions: Service Date/Time: Tuesday, July 19, 2016 11:14 - CONCLUSION: Expected postoperative changes left total knee arthroplasty. Ravi Adler MD Assessment and Plan Assessment and Plan Ms. Hernandez is a 65-year-old female with a known medical history of hypertension , hypothyroidism and dyslipidemia who is status post left total knee arthroplasty today 07/[address] Giron. Hospitalist group consulted for medical management. Status post left total knee arthroplasty - Pod op day 0. - Control pain, Percocet PO PRN per pain scale. Morphine 2mg Q3hr IV PRN per pain scale. Monitor for constipation, Colace 100 mg PO BID. Monitor for nausea, Zofran available PRN. - Continue NS at 100ml/hr. Encourage PO intake as tolerated, diet ordered. - Ancef 1 g IV x 3 bags post operatively. - Stabilization and dressing changes per surgery recommendations. Hypertension, controlled. - Continue Metoprolol 75 mcg PO HS. - Monitor BP. Control pain. - EKG on paper chart, reviewed, showing normal sinus rhythm with presence of right bundle branch block. No arrhythmias noted. Other chronic medical problems include dyslipidemia and hypothyroidism and are currently stable, will restart home medications as indication. DVT prophylaxis: SCDs. Lovenox 40 mg sq Q24hrs. Thank you for this consultation, we will follow with you. Written by Sunita Romero, acting as scribe for Dr. Lindsey on 07/19/16 at 12:19. This note was transcribed by scribe Sunita PRESTON. I, Dr. Rosa Lindsey personally performed the history, physical exam, and medical decision making; and confirmed the accuracy of the information in the transcribed note. Authenticated by Dr. Rosa Lindsey on 07/19/16 at 12:19. Discussed Condition With Patient Sunita Romero July 19, 2016 12:30 Rosa Lindsey MD July 19, 2016 12:47
[2016-07-19] MEDS ORDERED: *ONDANSETRON 4 MG VIAL PERIprocedural Use ONLY ONE (12:42)
[2016-07-19] MEDS: oxyCODONE/ACETAMINOPHEN 5 MG/325 MG TAB PO PRN ×2 (13:58→18:21)
[2016-07-19 15:59] VITALS: O2SAT 94
[2016-07-19 16:00] VITALS: BP 121/71; PULSE 80; RESP 18; TEMP 96.1; O2SAT 100
[2016-07-19] MEDS: ONDANSETRON HCL 4 MG/2 ML VIAL IVP PRN ×2 (17:02→22:51)
[2016-07-19 20:15] VITALS: BP 122/71; PULSE 90; RESP 17; TEMP 98; O2SAT 96
[2016-07-19] MEDS: SODIUM CHLORIDE 0.9% FLUSH 5 ML FLUSH IVF SCH (20:44)
[2016-07-19] MEDS ORDERED: PRAVASTATIN SOD 40 MG TAB PO SCH (21:00)
[2016-07-19] MEDS ORDERED: METOPROLOL SUCCINATE 25 MG EXTENDED RELEASE TAB PO SCH (21:00)
[2016-07-20 00:15] VITALS: BP 101/59; PULSE 92; RESP 16; TEMP 97.9; O2SAT 95
[2016-07-20] MEDS: oxyCODONE/ACETAMINOPHEN 5 MG/325 MG TAB PO PRN ×3 (01:03→12:57)
[2016-07-20 04:15] VITALS: BP 94/54; PULSE 80; RESP 16; TEMP 97.1; O2SAT 95
[2016-07-20] MEDS ORDERED: LEVOTHYROXINE SODIUM 75 MCG TAB PO SCH (06:00)
[2016-07-20 06:03] LABS: HEMATOCRIT 24.5 % (35.0-46.0); MEAN CELL VOLUME 88.7 FL (80.0-100.0); MEAN CORPUSCULAR HEMOGLOBIN 30.2 PG (27.0-34.0); PLATELET COUNT 160 TH/MM3 (150-450); RED BLOOD COUNT 2.76 MIL/MM3 (4.00-5.30); REVIEW FLAG FINAL; WHITE BLOOD COUNT 8.4 TH/MM3 (4.0-11.0)
[2016-07-20] MEDS: SODIUM CHLOR 0.9% 1000 ML INJ 1,000 ML IV SCH (06:22)
[2016-07-20] MEDS ORDERED: DEXAMETHASONE SOD PHOS 20 MG/5 ML VIAL IV ONE (07:45)
[2016-07-20 08:00] VITALS: PULSE 66; RESP 18; TEMP 96.6; O2SAT 97
[2016-07-20] MEDS: ONDANSETRON HCL 4 MG/2 ML VIAL IVP PRN (08:15)
[2016-07-20] MEDS: SODIUM CHLORIDE 0.9% FLUSH 5 ML FLUSH IVF SCH (08:16)
[2016-07-20] MEDS ORDERED: HYDROCHLOROTHIAZIDE 12.5 MG CAP PO SCH (09:00)
[2016-07-20] MEDS ORDERED: LOSARTAN 50 MG TAB PO SCH (09:00)
[2016-07-20] MEDS ORDERED: NON-FORMULARY DRUG (Losartan-Hydrochlorothiazide 1 TAB) PO SCH (09:00)
[2016-07-20] MEDS ORDERED: ENOXAPARIN SODIUM 40 MG/0.4 ML SYRINGE SQ SCH (10:00)
--- NOTE | 2016-07-20 11:43 | PD.ORT.PN ---
Subjective Post Op Day #: 1 Subjective Remarks The patient is resting in bed with at bedside. Patient reports minimal pain and no nausea. Patient requesting to go home with home health today. Objective Vitals Vital Signs Date Time Temp Pulse Resp B/P Pulse Ox O2 Delivery O2 Flow Rate FiO2 07/20/16 08:00 96.6 66 18 97 07/20/16 04:15 97.1 80 16 94/54 95 07/20/16 02:12 18 07/20/16 00:15 97.9 92 16 101/59 95 07/19/16 20:15 98.0 90 17 122/71 96 07/19/16 16:00 96.1 80 18 121/71 100 07/19/16 15:59 94 Nasal Cannula 2.00 07/19/16 12:30 79 16 118/65 94 Room Air I/O 07/19/16 07/19/16 07/19/16 07/20/16 07/20/16 07/20/16 07:00 15:00 23:00 07:00 15:00 23:00 Intake Total 1550 ml 240 ml 550 ml Output Total 750 ml 400 ml 250 ml Balance 800 ml -160 ml 550 ml -250 ml Intake Oral 50 ml 240 ml IV Total 300 ml 550 ml Other 1200 ml Output Urine Total 400 ml 250 ml Estimated Blood Loss 250 ml Other 500 ml # Bowel Movements 0 Result Diagram: 07/20/16 0537 Procedures Left TKA Objective Remarks The patient's dressings changed today with scant serosanguineous drainage. Incision is well approximated with surgical clips intact. No redness or s/s of infection. EHL/TA/G intact. 2+ pedal pulse. Calf is soft and nontender. Minimal swelling. + SILT. Assessment & Plan Ortho Post Op Day #: 1 Problem List: Assessment and Plan POD #1: Left TKA 1. WBAT to LLE 2. Lovenox followed by ASA for DVT prophylaxis 3. Ice to the left knee PRN 4. Stable for discharge home today with home health. Buck Orellana July 20, 2016 11:43
[2016-07-20 12:00] VITALS: BP 112/61; PULSE 73; RESP 18; TEMP 98.2; O2SAT 97
[2016-07-20] MEDS ORDERED: PROMETHAZINE HCL 25 MG TAB PO ONE (13:00)
[2016-07-20] MEDS ORDERED: MULTIVITAMINS/MINERALS THERAPEUTIC TAB PO SCH (21:00)
[2016-07-20] MEDS ORDERED: DOCUSATE SODIUM 100 MG CAP PO SCH (21:00)
--- NOTE | 2016-07-25 14:25 | HHI.DS ---
Discharge Summary Admission Date July 19, 2016 at 05:33 Discharge Date: July 20, 2016 Admitting Diagnosis Primary localized OA, lower leg Status post total knee replacement, left Diagnosis: (1) Primary localized osteoarthrosis, lower leg Diagnosis: Principal (2) Status post total knee replacement, left Diagnosis: Principal Procedures Left TKA Brief History This is a 65 year old female patient with severe OA of the left knee. PE at Discharge The patient's dressings changed today with scant serosanguineous drainage. Incision is well approximated with surgical clips intact. No redness or s/s of infection. EHL/TA/G intact. 2+ pedal pulse. Calf is soft and nontender. Minimal swelling. + SILT. Hospital Course This is a 65 year old female patient was admitted with severe OA of the left knee to have a left TKA. The patient's surgery went well without complication. The patient is WBAT on the LLE. The patient is on a regular diet. The patient was placed on Lovenox followed by ASA for DVT prophylaxis. The patient was discharged home with home health and will f/u with Dr. Giron in 1-2 weeks. Pt Condition on Discharge: Stable Discharge Disposition: Disch w/ Home Health Serv Discharge Instructions Diet Instructions: As Tolerated, No Restrictions Activities You Can Perform: Weight Bearing as Jatin Activities to Avoid: Strenuous Activity Follow up Referrals: Orthopedics with Yonatan Giron MD New Medications: Aspirin (Aspirin) 325 Mg Tab 325 MG PO DAILY Start Aspirin after Lovenox is completed. Prevent Blood Clot # 30 Ref 0 TAB Enoxaparin Inj (Lovenox Inj) 40 Mg/0.4 Ml Syr 40 MG SQ DAILY Start Aspirin after Lovenox is completed. Blood Clot Prevention # 10 Ref 0 SYRINGE Oxycodone-Acetaminophen (Percocet) 10-325 mg Tab 1-2 TAB PO Q4H Ok to take half a pill if too strong PRN PAIN #60 Ref 0 TAB Promethazine (Phenergan) 25 Mg Tab 25 MG PO Q6H PRN Nausea/Vomiting #40 Ref 0 TAB Continued Medications: Levothyroxine (Levothyroxine) 75 Mcg Tab 75 MCG PO DAILY Thyroid #30 Ref 0 TAB Losartan-Hydrochlorothiazide (Losartan-Hydrochlorothiazide) 100-12.5 Mg Tab 1 TAB PO DAILY Blood Pressure Management #30 Ref 0 TAB Metoprolol Succinate ER 24 HR (Metoprolol Succinate ER 24 HR) 25 Mg Tab 25 MG PO HS #30 Ref 0 TAB Simvastatin (Simvastatin) 20 Mg Tab 20 MG PO HS Cholesterol Management #30 Ref 0 TAB Zolpidem (Zolpidem) 5 Mg Tab 5 MG PO HS PRN INSOMNIA Ref 0 TAB Discontinued Medications: Acetaminophen (Tylenol) 325 Mg Tab 650 MG PO Q8HR PRN arthritis Ref 0 TAB Buck Orellana July 25, 2016 14:24
== END 2016-07-20 13:31 | disposition home health service (06) | DRG 470 ==
LOC: HSDI 07-19 05:33 → N06B 07-19 13:18
PROVIDERS: ADMIT Orthopaedic Surgery; ATTEND Orthopaedic Surgery
PROC: 0SRD0J9 Replacement of Left Knee Joint with Synthetic Substitute, Cemented, Open Approach (ICD-10-PCS; principal; 2016-07-19 08:19)
DX: M17.12 Unilateral primary osteoarthritis, left knee (principal); I10 Essential (primary) hypertension; E78.5 Hyperlipidemia, unspecified; E03.9 Hypothyroidism, unspecified
CPT/HCPCS: 73560; 82948; 85027; 86850; 86900; 86901; 94150; C1776; C9290; J0131; J0171; J0690; J0735; J1100; J1580; J1650; J1885; J2250; J2270; J2370; J2405; J2795; J3010; J3370; J7030; J7050; J7120; L1830; Q0169

== ENCOUNTER → 2016-07-05 | Outpatient (CLI) | payer MEDICARE ==
[~2016-07-05] MED LIST changes: +ASPI325T PO; +COLA100C3 PO; +COMMODE 3-IN-11 MIS; +CPMMACHINE; +ENOX40P SQ; +PERC10TA27 PO; +PERC5TAB12 PO; +PROM25TA5 PO; +TYLE325T PO; +WALKER WHEELS/F1 MIS; +ZOFR4TAB PO; +ZOLP5TAB3 PO
--- NOTE | 2016-07-05 11:03 | RADRPT ---
EXAM DATE/TIME: 07/05/2016 10:53 [facility] COMPARISON: CHEST PA & LAT, February 22, 2016, 11:29. INDICATIONS : Evaluate for pneumonia, pneumothorax, or communicable disease. MEDICAL HISTORY : Hypertension. SURGICAL HISTORY : None. ENCOUNTER: Initial ACUITY: 1 day PAIN SCORE: 0/10 LOCATION: Bilateral chest FINDINGS: PA and lateral views of the chest demonstrate the lungs to be symmetrically aerated without evidence of mass, infiltrate or effusion. The cardiomediastinal contours are unremarkable. Osseous structure s are intact. CONCLUSION: No acute disease. Heriberto Rothman MD on July 05, 2016 at 10:57 Board Certified Radiologist. This report was verified electronically.
[2016-07-05 11:18] LABS: AUTOMATED NEUTROPHIL # 2.8 TH/MM3 (1.8-7.7); BASOPHIL % 0.6 % (0.0-2.0); EOSINOPHIL # 0.4 TH/MM3 (0-0.4); EOSINOPHIL % 7.6 % (0.0-4.0); HEMATOCRIT 37.4 % (35.0-46.0); HEMO FLAGS DIFF FINAL; LYMPH % 23.9 % (9.0-44.0); LYMPHOCYTE # 1.1 TH/MM3 (1.0-4.8); MEAN CELL VOLUME 90.3 FL (80.0-100.0); MEAN CORPUSCULAR HEMOGLOBIN 29.5 PG (27.0-34.0); MEAN CORPUSCULAR HGB CONC 32.7 % (32.0-36.0); MONO % 9.8 % (0.0-8.0); NEUT % 58.1 % (16.0-70.0); PLATELET COUNT 207 TH/MM3 (150-450); RED BLOOD COUNT 4.14 MIL/MM3 (4.00-5.30); RED CELL DISTRIBUTION WIDTH 14.5 % (11.6-17.2); WHITE BLOOD COUNT 4.8 TH/MM3 (4.0-11.0)
[2016-07-05 11:23] LABS: BLOOD, URINE NEG (NEG); GLUCOSE,URINE NEG (NEG); KETONE, URINE NEG (NEG); MUCUS URINE FEW /lpf (OCC); NITRITE,URINE NEG (NEG); PH, URINE 6.5 (5.0-8.5); SQUAMOUS EPITHELIAL CELL URINE 2 /hpf (0-5); URINE COLOR YELLOW (YELLW/STRAW)
[2016-07-05 11:32] LABS: COMMENT (UR) CULT NOT INDICATED; CULTURE IF INDICATED CULT NOT INDICATED
[2016-07-05 11:35] LABS: APTT (PATIENT) 25.9 SEC (24.3-30.1); PROTHROMBIN TIME - PATIENT 11.3 SEC (9.8-11.6); WESTERGREN SEDIMENTATION RATE 8 mm/hr (0-30)
[2016-07-05 11:44] LABS: ALT (GPT) 19 U/L (10-53); ANION GAP 6 MEQ/L (5-15); AST (GOT) 13 U/L (15-37); BICARBONATE 32.2 MEQ/L (21.0-32.0); BLOOD UREA NITROGEN 18 MG/DL (7-18); CHLORIDE 103 MEQ/L (98-107); GLOMERULAR FILTRATION RATE 93 ML/MIN (>89); GLUCOSE,FASTING 92 MG/DL (74-99); POTASSIUM 3.8 MEQ/L (3.5-5.1); SODIUM (NA) 141 MEQ/L (136-145)
[2016-07-05 11:46] LABS: ALKALINE PHOSPHATASE 63 U/L (45-117); TOTAL BILIRUBIN ADULT 0.4 MG/DL (0.2-1.0)
--- NOTE | 2016-07-06 16:04 | EKG ---
Date Performed: 07/05/2016 Time Performed: 10:17:53 PTAGE: 65 years EKG: Sinus rhythm INCOMPLETE RIGHT BUNDLE BRANCH BLOCK NONSPECIFIC T-WAVE ABNORMALITY BORDERLINE ECG PREVIOUS TRACING 02/22/2016 10.39 Compared to prior tracing no significant change DOCTOR: Ankur Perales Interpretating Date/Time 07/06/2016 16:02:23
== END ==
LOC: CPRE 09:52
PROVIDERS: ATTEND Orthopaedic Surgery
DX: Z01.810 Encounter for preprocedural cardiovascular examination (principal); Z01.811 Encounter for preprocedural respiratory examination; Z01.812 Encounter for preprocedural laboratory examination; Z96.60 Presence of unspecified orthopedic joint implant; M79.609 Pain in unspecified limb; M25.50 Pain in unspecified joint; M17.12 Unilateral primary osteoarthritis, left knee; R94.31 Abnormal electrocardiogram [ECG] [EKG]
CPT/HCPCS: 36415; 71020; 80053; 81001; 85025; 85610; 85652; 85730; 93005